=== PATIENT | female | born 1960 | race Hispanic/Latino ===

== ENCOUNTER 2017-09-22 11:40 | Emergency (ER) | payer MEDICARE ==
[2017-09-22 11:46] VITALS: BP 121/82
--- NOTE | 2017-09-22 12:03 | Emergency Department Report ---
ED General Adult HPI - General Chief complaint: Medical Clearance Stated complaint: URINE TEST Time Seen by Provider: 09/22/17 11:52 Source: patient Mode of arrival: Ambulatory Limitations: No Limitations - History of Present Illness Initial comments: pt sent by Dr Null for uds and ua no symptoms pt taking xanax, chol, soma, per, norco -: Gradual - Related Data Home Medications Medication Instructions Recorded Confirmed Last Taken ALPRAZolam [Alprazolam] 1 tab PO QID 01/27/14 01/27/14 01/26/14 Carisoprodol 1 tab PO DAILY 01/27/14 01/27/14 01/27/14 Ezetimibe [Zetia] 1 tab PO DAILY 01/27/14 01/27/14 01/27/14 HYDROcodone/ACETAMINOPHEN 1 tab PO PRN 01/27/14 01/27/14 01/27/14 [Hydrocodon-Acetaminophn 10-325] Nortriptyline [Pamelor] 1 tab PO DAILY 01/27/14 01/27/14 01/27/14 Pravastatin Sodium 1 tab PO DAILY 01/27/14 01/27/14 01/26/14 oxyCODONE /ACETAMINOPHEN [Percocet 1 tab PO PRN 01/27/14 01/27/14 Unknown 5/325 mg] Allergies Allergy/AdvReac Type Severity Reaction Status Date / Time ketorolac tromethamine Allergy Itching Verified 09/22/17 11:42 [From Toradol] codeine AdvReac Angioedema Verified 09/22/17 11:42 morphine AdvReac TACHYCARDIA Verified 09/22/17 11:42 ED Review of Systems ROS: Stated complaint: URINE TEST Other details as noted in HPI Comment: no complaints ED Past Medical Hx - Past Medical History Hx Arthritis: Yes Additional medical history: hpld - Surgical History Hx Cholecystectomy: Yes - Social History Smoking Status: Current Every Day Smoker Substance Use Type: None - Medications Home Medications: Home Medications Medication Instructions Recorded Confirmed Last Taken Type ALPRAZolam [Alprazolam] 1 tab PO QID 01/27/14 01/27/14 01/26/14 History Carisoprodol 1 tab PO DAILY 01/27/14 01/27/14 01/27/14 History Ezetimibe [Zetia] 1 tab PO DAILY 04/06/0401/27/14 01/27/14 History HYDROcodone/ACETAMINOPHEN 1 tab PO PRN 01/27/14 01/27/14 01/27/14 History [Hydrocodon-Acetaminophn 10-325] Nortriptyline [Pamelor] 1 tab PO DAILY 01/27/14 01/27/14 01/27/14 History Pravastatin Sodium 1 tab PO DAILY 01/27/14 01/27/14 01/26/14 History oxyCODONE /ACETAMINOPHEN [Percocet 1 tab PO PRN 01/27/14 01/27/14 Unknown History 5/325 mg] ED Physical Exam - General Limitations: No Limitations General appearance: alert - Head Head exam: Present: atraumatic - Eye Eye exam: Present: PERRL - ENT ENT exam: Present: mucous membranes moist - Respiratory Respiratory exam: Present: normal lung sounds bilaterally - Cardiovascular Cardiovascular Exam: Present: regular rate - GI/Abdominal GI/Abdominal exam: Present: soft - Rectal Rectal exam: Present: deferred - Extremities Exam Extremities exam: Present: normal inspection - Back Exam Back exam: Present: normal inspection. Absent: CVA tenderness (R), CVA tenderness (L) - Neurological Exam Neurological exam: Present: alert, oriented X3 - Psychiatric Psychiatric exam: Present: normal affect, normal mood - Skin Skin exam: Present: warm, dry, intact ED Course Vital Signs 09/22/17 11:43 Temperature 97.6 F Pulse Rate 80 Respiratory 18 Rate Blood Pressure 121/82 O2 Sat by Pulse 97 Oximetry ED Medical Decision Making - Medical Decision Making no complaints see note - Differential Diagnosis sent by pcp for ua and uds Critical care attestation.: If time is entered above; I have spent that time in minutes in the direct care of this critically ill patient, excluding procedure time. ED Disposition Clinical Impression: Renal failure Qualifiers: Renal failure chronicity: chronic Disposition: DC-01 TO HOME OR SELFCARE Is pt being admited?: No Does the pt Need Aspirin: No Condition: Stable Time of Disposition: 12:03
[2017-09-22 12:10] LABS: Urine Drugs of Abuse Note Disclamer
[2017-09-22 12:25] LABS: Bilirubin,Urine NEG (Negative); Blood,Urine SM (Negative); Ketones,Urine NEG (Negative); Leukocyte Esterase,Urine NEG (Negative); Nitrite,Urine NEG (Negative); Protein,Urine <15 mg/dL mg/dL (Negative); RBC,Urine < 1.0 /HPF (0.0-6.0); Urobilinogen,Urine < 2.0 mg/dL (<2.0)
== END 2017-09-22 12:39 | disposition home or self-care (01) ==
LOC: ED 11:40
DX: N18.9 Chronic kidney disease, unspecified (principal); E78.5 Hyperlipidemia, unspecified; F17.200 Nicotine dependence, unspecified, uncomplicated; Z88.5 Allergy status to narcotic agent; Z88.8 Allergy status to other drugs, medicaments and biological substances
CPT/HCPCS: 80307; 81001; 99283